=== PATIENT | male | born 1985 | race Caucasian/White ===

== ENCOUNTER 2021-01-02 12:27 | Emergency (ER) | payer BC ==
[2021-01-02] MEDS: Lidocaine 1% with EPINEPHrine 1:100,000 20 ML MDV INJECT ONE (13:10)
--- NOTE | 2021-01-02 13:35 | EDM.PDOC ---
ED HPI GENERAL MEDICAL PROBLEM - General Chief Complaint: Laceration Stated Complaint: LACERATION Time Seen by Provider: 01/02/21 13:10 Source of Information: Reports: Patient History Limitations: Reports: No Limitations - History of Present Illness INITIAL COMMENTS - FREE TEXT/NARRATIVE: presented to the ER with a wound laceration to the left hand/wrist, from a utility knife while helping a friend with some construction. Onset: Sudden Duration: Minutes: (30) Location: Reports: Upper Extremity, Left Left Finger-Thumb Pain Score (Numeric/FACES): 3 - Related Data Allergies Allergy/AdvReac Type Severity Reaction Status Date / Time No Known Allergies Allergy Verified 01/02/21 13:32 Home Meds: Home Meds NK [No Known Home Meds] 01/02/21 [History] Social & Family History - Family History Family Medical History: No Pertinent Family History ED ROS GENERAL - Review of Systems Review Of Systems: See Below Constitutional: Reports: No Symptoms HEENT: Reports: No Symptoms Respiratory: Reports: No Symptoms Cardiovascular: Reports: No Symptoms GI/Abdominal: Reports: No Symptoms Neurological: Reports: No Symptoms Psychiatric: Reports: No Symptoms ED EXAM, SKIN/RASH Exam: See Below Exam Limited By: No Limitations General Appearance: Alert, WD/WN, No Apparent Distress Eye Exam: Bilateral Eye: EOMI Respiratory/Chest: No Respiratory Distress Cardiovascular: Normal Peripheral Pulses Peripheral Pulses: 2+: Radial (L) Neurological: Alert, Oriented, No Motor/Sensory Deficits Psychiatric: Normal Affect Location, Skin: Upper Extremity, Left (there is a non bleeding linear 4 cm wound to the [place] side of the left hand/wrist. ) ED SKIN PROCEDURES - Laceration/Wound Repair Left Hand Appearance: Linear, Clean Distal NVT: Neuro & Vascular Intact, No Tendon Injury Anesthetic Type: Local Local Anesthesia - Lidocaine (Xylocaine): 1% with EPI Local Anesthetic Volume: 3cc Skin Prep: Chlorhexidine (Hibiciens), Providone-Iodine (Betadine) Exploration/Debridement/Repair: Wound Explored, No Foreign Material Found Closed with: Sutures Lac/Wound length In cm: 4 Suture Size: 4-0 # of Sutures: 6 Suture Type: Prolene, Interrupted Drain Placement: No Sterile Dressing Applied: Nurse Tetanus Status Addressed: No Complications: No Course - Vital Signs Last Recorded V/S: Last Vital Signs Temp 36.9 C 01/02/21 12:30 Pulse 66 01/02/21 12:30 Resp 18 01/02/21 12:30 BP 149/91 H 01/02/21 12:30 Pulse Ox 100 01/02/21 12:30 - Re-Assessments/Exams Free Text/Narrative Re-Assessment/Exam: 01/02/21 13:37 wound was washed and cleaned sutures applied - see procedure note well tolerated sterile dressing Departure - Departure Time of Disposition: 13:36 Disposition: Home, Self-Care 01 Condition: Good Clinical Impression: Laceration of hand Qualifiers: Encounter type: initial encounter Foreign body presence: without foreign body L aterality: left Qualified Code(s): S61.412A - Laceration without foreign body of left hand, initial encounter - Discharge Information *PRESCRIPTION DRUG MONITORING PROGRAM REVIEWED*: Not Applicable *COPY OF PRESCRIPTION DRUG MONITORING REPORT IN PATIENT [place]: Not Applicable Instructions: Laceration Care, Adult, [id number], Sutures, [place], or Adhesive Wound Closure, [id number] Referrals: PCP,None [Primary Care Provider] - Forms: ED Department Discharge Additional Instructions: - apply antibiotic ointment on the wound at least once daily - keep wound covered, dry and clean - return to the clinic in 7-10 days for sutures removal - watch for signs of wound infection Sepsis Event Note (ED) - Evaluation Sepsis Screening Result: No Definite Risk - Focused Exam Vital Signs: Vital Signs Temp Pulse Resp BP Pulse Ox 01/02/21 12:30 36.9 C 66 18 149/91 H 100 - Problem List & Annotations (1) Laceration of hand SNOMED Code(s): 102163108 Code(s): S61.419A - LACERATION WITHOUT FOREIGN BODY OF UNSP HAND, INIT ENCNTR Status: Acute Priority: Low Current Visit: Yes Qualifiers: Encounter type: initial encounter Foreign body presence: without foreign body Laterality: left Qualified Code(s): S61.412A - Laceration without foreign body of left hand, initial encounter - Problem List Review Problem List Initiated/Reviewed/Updated: Yes - Assessment/Plan Plan: - apply antibiotic ointment on the wound at least once daily - keep wound covered, dry and clean - return to the clinic in 7-10 days for sutures removal - watch for signs of wound infection
== END 2021-01-02 13:40 | disposition home or self-care (01) ==
LOC: LB.ED 12:27
DX: S61.412A Laceration without foreign body of left hand, initial encounter (principal); W26.0XXA Contact with knife, initial encounter
CPT/HCPCS: 12002; 99282-25